=== PATIENT | female | born 1985 | race Caucasian/White ===

== ENCOUNTER 2018-02-06 10:09 | Day surgery (SDC) | payer OTHER ==
[~2018-02-06 10:09] MED LIST: LIDOCAINE 2% (SDV) 5 ML INJ; PROPOFOL 200 MG INJ
[2018-02-06] MEDS ORDERED: CEFAZOLIN 1 GM INJ ×2 (13:04→14:27)
[2018-02-06] MEDS ORDERED: NEOSTIGMINE 3 MG/3 ML SYRINGE (13:04)
[2018-02-06] MEDS ORDERED: GLYCOPYRROLATE 0.4 MG INJ (13:04)
[2018-02-06] MEDS ORDERED: PROPOFOL 20 ML (13:04)
[2018-02-06] MEDS ORDERED: ROCURONIUM 50 MG INJ (13:04)
[2018-02-06] MEDS ORDERED: MIDAZOLAM 1 MG/ML 2 ML INJ (13:05)
[2018-02-06] MEDS ORDERED: FENTAnyl 50 MCG/ML VIAL (13:05)
[2018-02-06] MEDS ORDERED: ONDANSETRON 4 MG INJ ×2 (13:05→17:15)
[2018-02-06] MEDS ORDERED: DEXAMETHASONE 4 MG/ML 1 ML INJ ×4 (13:05→17:19)
[2018-02-06] MEDS ORDERED: BUPIVACAINE 0.25% (MPF) 30 ML INJ (13:56)
[2018-02-06] MEDS ORDERED: GELATIN SIZE 100 SPONGE (13:57)
[2018-02-06] MEDS ORDERED: POLYMYXIN/BACITRACIN 1L IRRIG (14:04)
[2018-02-06] MEDS: BUPIVACAINE 0.25%/EPI (MDV) 50 ML VIAL INJ (15:15)
[2018-02-06] MEDS: POLYMYXIN/BACITRACIN 1L IRRIG (15:15)
[2018-02-06] MEDS: THROMBIN 5000 UNIT VIAL (15:15)
[2018-02-06] MEDS: HEMOSTATIC MATRIX SYG ZFS (15:16)
[2018-02-06] MEDS ORDERED: FAMOTIDINE 20 MG INJ (17:15)
[2018-02-06] MEDS ORDERED: PROCHLORPERAZINE 10 MG TAB PO (18:00)
[2018-02-06] MEDS ORDERED: NACL 0.9% 3 ML SYG IV (18:00)
[2018-02-06] MEDS ORDERED: ONDANSETRON 4 MG INJ IV (18:00)
[2018-02-06] MEDS ORDERED: BETHANECHOL 25 MG TAB PO (18:00)
[2018-02-06] MEDS ORDERED: NALOXONE (0.4 MG/ML) INJ IV (18:00)
[2018-02-06] MEDS ORDERED: DIPHENHYDRAMINE 50 MG INJ (18:08)
[2018-02-06] MEDS ORDERED: METOCLOPRAMIDE 10 MG INJ (18:08)
[2018-02-06] MEDS ORDERED: HYDROmorphONE (0.2 MG/ML) 10ML SYG IV ×3 (18:12→18:30)
[2018-02-06] MEDS: HYDROmorphONE (0.2 MG/ML) 10ML SYG IV ×2 (18:23→18:33)
[2018-02-06] MEDS: HYDROmorphONE 0.2 MG/ML PCA IV (18:28)
[2018-02-06] MEDS: METOCLOPRAMIDE 10 MG INJ IV (18:29)
[2018-02-06] MEDS: DIPHENHYDRAMINE 50 MG INJ IV (18:29)
[2018-02-06] MEDS ORDERED: MEPERIDINE 25 MG INJ IV (18:30)
[2018-02-06] MEDS ORDERED: PROCHLORPERAZINE 10 MG INJ IV (18:30)
[2018-02-06] MEDS: CEFAZOLIN 1 GM/50 ML (PMX) 50 ML IVPB ×2 (18:40→23:31)
[2018-02-06] MEDS: DEXTROSE 5%-0.45% NACL 1,000 ML IV (20:58)
[2018-02-06] MEDS: CEPASTAT LOZENGE MT (23:26)
[2018-02-07] MEDS: DEXTROSE 5%-0.45% NACL 1,000 ML IV ×4 (03:57→23:57)
[2018-02-07 05:13] LABS: ADD MAN DIFF? NO
[2018-02-07 05:20] LABS: WHITE BLOOD COUNT 13.9 10^3/ul (4.8-10.8)
[2018-02-07 05:20] LABS: BASOPHILS % 0.1 % (0.0-2.0); HEMATOCRIT 35.6 % (37.0-47.0); HEMOGLOBIN 11.7 g/dl (12.0-16.0); LYMPHOCYTES # 1.1 10^3/ul (0.8-2.9); LYMPHOCYTES % 8.1 % (15.0-51.0); MEAN CORPUSCULAR HEMOGLOBIN 30.2 pg (29.0-33.0); MEAN CORPUSCULAR HGB CONC 32.9 g/dl (32.0-37.0); MEAN PLATELET VOLUME 9.5 fl (7.4-10.4); MONOCYTE # 0.4 10^3/ul (0.3-0.9); MONOCYTES % 2.5 % (0.0-11.0); NEUTROPHIL # 12.4 10^3/ul (1.6-7.5); NEUTROPHILS % 88.9 % (39.0-77.0); PLATELET COUNT 344 10^3/UL (140-415); RED BLOOD COUNT 3.87 10^6/ul (4.20-5.40); RED CELL DISTRIBUTION WIDTH 12.4 % (11.5-14.5)
[2018-02-07 05:37] LABS: ANION GAP 17 (8-16); BLOOD UREA NITROGEN 12 mg/dl (7-20); CALCIUM 9.1 mg/dl (8.4-10.2); CARBON DIOXIDE 23 mmol/L (21-31); CHLORIDE 107 mmol/L (97-110); CREATININE 0.68 mg/dl (0.44-1.00); GLUCOSE 161 mg/dl (70-220); POTASSIUM 4.4 mmol/L (3.5-5.1); SODIUM 143 mmol/L (135-144)
[2018-02-07] MEDS: CEFAZOLIN 1 GM/50 ML (PMX) 50 ML IVPB ×2 (05:42→11:25)
[2018-02-07] MEDS: HYDROmorphONE 0.2 MG/ML PCA IV (06:51)
[2018-02-07] MEDS ORDERED: FLUOXETINE 20 MG CAP PO (09:00)
[2018-02-07] MEDS: FLUOXETINE 20 MG CAP PO (09:06)
[2018-02-07] MEDS: OXYCODONE/ACETAMINOPHEN (10/325) TAB PO ×2 (15:07→21:58)
[2018-02-08] MEDS: HYDROCODONE/APAP (5/325) TAB PO ×3 (02:18→17:26)
[2018-02-08] MEDS: DEXTROSE 5%-0.45% NACL 1,000 ML IV (02:19)
[2018-02-08] MEDS: CEPASTAT LOZENGE MT ×2 (06:58→14:39)
[2018-02-08] MEDS: FLUOXETINE 20 MG CAP PO (09:46)
[2018-02-08] MEDS: OXYCODONE/ACETAMINOPHEN (10/325) TAB PO ×2 (09:46→14:35)
== END 2018-02-08 18:10 | disposition home or self-care (01) ==
LOC: SDS 10:09 → REC 18:04 → MS1 18:56 → REC 18:56 → SDS 18:04 → MS1 18:04
DX: M51.26 Other intervertebral disc displacement, lumbar region (principal); J45.909 Unspecified asthma, uncomplicated; E66.01 Morbid (severe) obesity due to excess calories; Z68.41 Body mass index [BMI] 40.0-44.9, adult
CPT/HCPCS: 63030; 72110; 80048; 84703; 85025; 97110; 97116; 97161